=== PATIENT | female | born 1985 | race Caucasian/White ===

== ENCOUNTER 2017-06-30 00:56 | Emergency (ER) | payer SELFPAY ==
[~2017-06-30] VITALS: Ht 165.1 cm; Wt 75.0 kg
[2017-06-30 00:57] VITALS: BP 135/72; PULSE 82; RESP 16; TEMP 98.2; O2SAT 98
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
[2017-06-30] MEDS ORDERED: TETANUS/DIPHTHERIA TOXOID ADULT 0.5 ML VIAL IM ONE (01:15)
== END 2017-06-30 03:12 | disposition left against medical advice (07) ==
LOC: NEPD 00:56
DX: S69.91XA Unspecified injury of right wrist, hand and finger(s), initial encounter (principal); S61.216A Laceration without foreign body of right little finger without damage to nail, initial encounter; W22.09XA Striking against other stationary object, initial encounter; Y92.019 Unspecified place in single-family (private) house as the place of occurrence of the external cause
CPT/HCPCS: 99281